=== PATIENT | male | born 1940 | race Caucasian/White ===

== ENCOUNTER 2017-10-09 09:38 | Outpatient (CLI) | payer MEDICARE, BC, OTHER ==
--- NOTE | 2017-10-09 15:21 | PET ---
EXAM: WHOLE BRAIN PET IMAGING: HISTORY: Dementia. Senile degeneration of the brain. COMPARISON: None. TECHNIQUE: PET scan with CT attenuation correction is performed of the entire brain following the intravenous ad ministration of 12.16 mCi of [id number]. FINDINGS: There is decreased metabolic activity involving the bilateral parietal temporal cortices. Hypometabo lic activity of the singlet gyrus is less evident. IMPRESSION: Hypometabolic activity involving the temporoparietal lobes bilaterally. POS: [facility]
== END 2017-10-09 09:39 | disposition home or self-care (01) ==
LOC: PET 09:38
PROVIDERS: ATTEND Psychiatry & Neurology Neurology
DX: G31.1 Senile degeneration of brain, not elsewhere classified (principal)
CPT/HCPCS: 78608; A9552

== ENCOUNTER 2021-11-03 08:36 | Outpatient (CLI) | payer MEDICARE, BC, OTHER | END 2021-11-03 08:37 | disposition home or self-care (01) | LOC: NM 08:36 | PROVIDERS: ATTEND Nurse Practitioner Acute Care | DX: R26.9 Unspecified abnormalities of gait and mobility (principal); R25.1 Tremor, unspecified; G31.1 Senile degeneration of brain, not elsewhere classified; Z98.1 Arthrodesis status | CPT/HCPCS: 72148; 78803; A9584 ==